=== PATIENT | male | born 1985 | race Caucasian/White ===

== ENCOUNTER 2019-10-28 06:52 | Emergency (ER) | payer OTHER, SELFPAY ==
--- NOTE | ~2019-10-28 | XR_ITS ---
EXAMINATION: XR hand LT min 3V DATE: 10/28/2019 07:49 INDICATION: Left hand injury and pain and swelling. TECHNIQUE: 3 views of left hand were obtained. COMPARISON: Left wrist radiographs 05/19/2016 FINDINGS: Bone alignment is normal. No fracture. Joint spaces are well maintained. IMPRESSION: 1. Normal left hand. Reviewed, dictated and finalized at location B. IMPRESSION: 1. Normal left hand.
--- NOTE | ~2019-10-28 | XR_ITS ---
EXAMINATION: XR hand RT min 3V DATE: 10/28/2019 07:49 INDICATION: Right hand injury and pain and swelling. TECHNIQUE: 3 views of right hand were obtained. COMPARISON: Right hand radiographs 01/17/2017 FINDINGS: Bone alignment is normal. No fracture. 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 IMPRESSION: 1. No fracture. Reviewed, dictated and finalized at location B. IMPRESSION: 1. No fracture.
[2019-10-28 07:09] VITALS: BP 138/77; PULSE 74; RESP 20; TEMP 36.6; O2SAT 98
--- NOTE | 2019-10-28 07:13 | ED.EXTPRO ---
HPI - Extremity Problem General Chief complaint: Extremity Problem,Nontraumatic Stated complaint: hands are numb Time Seen by Provider: 10/28/19 07:13 Source: patient Mode of arrival: ambulatory Limitations: no limitations History of Present Illness HPI Narrative: 33-year-old man comes in today complaining of bilateral hand pain, swelling and numbness that started over the last day or so. 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 He states that the numbness is on the palm side of his thumb, index, long and ring fingers. He denies prior similar symptoms. He states that his work requires him to do lot of gripping and twisting. Complaint: extremity pain and extremity swelling Onset (ago): day(s) Pain Consistency: constant Location: left, right and upper extremity Quality: aching Radiation: none Relieving factors: nothing Exacerbating factors: range of motion and palpation Associated symptoms: denies other symptoms Related Data Allergies Allergy/AdvReac Type Severity Reaction Status Date / Time No Known Allergies Allergy Verified 05/19/16 13:35 Review of Systems Constitutional: Constitutional: Denies chills and Denies fever(s) Eyes: Eyes: Denies change in vision and Denies photophobia ENT: Denies dysphagia, Denies nasal congestion and Denies sore throat Cardiovascular: Cardiovascular: Denies chest pain and Denies radiating jaw, neck or arm pain Respiratory: Respiratory: Denies cough and Denies dyspnea Gastrointestinal: Gastrointestinal: Denies nausea and Denies vomiting Musculoskeletal: Musculoskeletal: Reports as per HPI and Denies myalgias Integumentary/Breasts: Skin/Breast: Denies pruritus, Denies erythema and Denies rash Neurologic: Denies vertigo, Denies dizziness and Denies syncope Hematologic/Lymphatic: Hematologic/Lymphatic: Denies easy bleeding and Denies easy bruising Allergic/Immunologic: Allergic/Immunologic: Denies lip swelling and Denies throat swelling PMFSH Family History Family History (Updated 10/27/13 @ 07:13 by DOCTOR UNKNOWN) Mother Family history of elevated blood lipids Grandparent Diabetes mellitus Social History Social History Alcohol intake: current Exam Const: General: no acute distress and alert Orientation/consciousness: patient oriented x3 Limitations: no limitations HENMT: Face and sinus: normal facial exam Eyes: Conjunctivae: conjunctivae normal Pupils: Equal, round and reactive pupils present EOM: EOMs intact bilaterally Neck: Neck: not normal to visual inspection and lymphadenopathy noted Resp: Effort & Inspection: normal respiratory effort and not labored Auscultation: clear to auscultation bilaterally, no rales, no rhonchi and no wheezes Cardio: Rate: regular rate Rhythm: regular rhythm Skin: General skin exam: normal color, no jaundice and no pallor Rashes: no rashes Neuro: General: patient oriented x3, moves all extremities, no focal motor deficits and CN's II-XI intact bilaterally Gait exam (Neuro): Normal gait present Extrem: Other: Nonpitting edema in the hands bilaterally. There is mild tenderness palpation over all the metatarsals bilaterally but more significant tenderness at the right dorsal 2nd metatarsal. 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 Negative Tinel's sign. Psych: Appearance: grossly normal and well kempt Mental Status: mental status grossly normal Affect: normal affect Attitude: cooperative Thought content: Yes Normal thought content present Course Vital Signs Vital signs: Vital Signs Temperature 36.6 C 10/28/19 07:09 Pulse Rate 74 10/28/19 07:09 Respiratory Rate 20 10/28/19 07:09 Blood Pressure 138/77 10/28/19 07:09 Pulse Oximetry 98 10/28/19 07:09 Temperature 36.6 C 10/28/19 07:09 Pulse Rate 74 10/28/19 07:09 Respiratory R
[2019-10-28 08:23] VITALS: BP 130/75; PULSE 75; RESP 18; TEMP 36.2; O2SAT 99
== END 2019-10-28 08:27 | disposition home or self-care (01) ==
PROVIDERS: Emergency Provider Emergency Medicine; PCP Internal Medicine
DX: S60.222A Contusion of left hand, initial encounter (principal); S60.221A Contusion of right hand, initial encounter; S64.10XA Injury of median nerve at wrist and hand level of unspecified arm, initial encounter
CPT/HCPCS: 73130; 99283; 99284

== ENCOUNTER 2020-09-13 13:41 | Emergency (ER) | payer OTHER, SELFPAY ==
--- NOTE | ~2020-09-13 | CT_ITS ---
EXAMINATION: CT abdomen pelvis w con DATE: 09/13/2020 17:23 INDICATION: Right lower quadrant tenderness with nausea and diarrhea. TECHNIQUE: Computed tomography (CT) of the abdomen and pelvis was performed with 100 mL Omnipaque-350 intravenous contrast. Automated exposure control and iterative reconstruction technique were employe d. The dose-length product was 528.65 mGy-cm. COMPARISON: 02/22/2013 FINDINGS: Bilateral lower lung zones are clear. Heart size is normal. No pericardial or pleural effusion. Focal hepatic steatosis at the ligamentum teres. Gallbladder, spleen, pancreas, bilateral adrenal glands a nd kidneys are normal. Bowels including the appendix are normal. Small right and very small left fat- containing inguinal hernias. Mild bladder wall thickening which could be due to incomplete distention or cystitis either acute or chronic. No free intraperitoneal gas or fluid. No pathologically enlarge d abdominal or pelvic lymphadenopathy. Sacralized L5 segment. IMPRESSION: 1. Mild bladder wall thickening which could be due to incomplete distention or cystitis either acute or chronic. No other acute intra-abdominal/pelvic process. Specifically the appendix is normal. Reviewed, dictated and finalized at location A. IMPRESSION: 1. Mild bladder wall thickening which could be due to incomplete distention or cystitis either acute or chronic. No other acute intra-abdominal/pelvic process . Specifically the appendix is normal.
[2020-09-13 16:00] VITALS: BP 112/77; PULSE 87; RESP 20; TEMP 36.8; O2SAT 100
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
[2020-09-13] MEDS: SODIUM CHLORIDE 0.9% IV 1,000 ML 999 ML IV CONT (16:16)
[2020-09-13] MEDS: HYDROmorphone HCL INJ (*CRX) 2 MG/ML VIAL 0.5 MG IV PUSH (16:17)
[2020-09-13] MEDS: ONDANSETRON INJ 4 MG/2 ML VIAL IV PUSH (16:17)
[2020-09-13 16:30] LABS: Basophils Absolute Auto 0.08 K/mm3 (0.00-0.10); Basophils Percent Auto 0.6 % (0.0-1.0); Eosinophils Absolute Auto 0.13 K/mm3 (0.02-0.50); Hematocrit 43.9 % (40.0-54.0); Hemoglobin 15.1 g/dL (14.0-18.0); Immature Granulocyte Absolute 0.06 K/mm3 (0.00-0.00); Immature Granulocyte Percent A 0.4 % (0.0-0.0); Lymphocytes Absolute Auto 2.61 K/mm3 (1.10-4.50); Lymphocytes Percent Auto 19.6 % (18.0-42.0); Mean Corpuscular HGB Conc 34.4 g/dL (32.0-36.0); Mean Corpuscular Hemoglobin 30.4 pg (27.0-31.0); Mean Corpuscular Volume 88.3 fL (78.0-102.0); Mean Platelet Volume 8.4 fl (8.7-11.0); Monocytes Absolute Auto 1.38 K/mm3 (0.10-0.90); Monocytes Percent Auto 10.3 % (2.0-11.0); Neutrophils Absolute Auto 9.1 K/mm3 (1.7-7.2); Neutrophils Percent Auto 68.1 % (50.0-70.0); Platelet Count Result 276 K/mm3 (150-420); Red Blood Count 4.97 M/mm3 (4.70-6.10); Red Cell Distribution Width 12.4 % (11.6-14.4); White Blood Count 13.4 K/mm3 (4.8-10.8)
[2020-09-13 16:30] LABS: Add Urine Microscopic? YES; Appearance Urine Clear (Clear); Bilirubin Urine Negative (Negative); Blood Urine Negative (Negative); Color Urine Yellow (Yellow); Glucose Urine UA Trace (Negative); Ketones Urine Negative (Negative); Leukocyte Esterase Ur Negative LEU/UL (Negative); Nitrate Urine Negative (Negative); Protein Urine Trace (Negative); Specific Grav Ur >= 1.030 (1.010-1.020); pH Urine 5.5 (5.0-8.0)
[2020-09-13 16:35] LABS: RBC Urine 0-2 /hpf (0-2)
[2020-09-13 16:36] LABS: Bacteria Urine 1+ /hpf; Mucus Urine Heavy /lpf; Squamous Epithelial Cell Urine None seen /hpf (Few)
[2020-09-13 16:45] LABS: Alanine Aminotransferase 17 U/L (16-63); Albumin Level 3.9 g/dL (3.4-5.0); Alkaline Phosphatase 79 U/L (46-116); Anion Gap 10 mmol/L (8-16); Aspartate Amino Transferase 11 U/L (15-37); Bilirubin,Total 0.7 mg/dL (0.00-1.00); Blood Urea Nitrogen 24 mg/dL (7-18); Carbon Dioxide 27 mmol/L (21-32); Chloride 104 mmol/L (98-108); Estimated CRCL calculation 89 ml/min; Estimated Glomerular Filt Rate > 60; Glucose 100 mg/dL (70-99); Osmolality Calculated 296 mOsm/kg (285-295); Potassium 3.7 mmol/L (3.5-5.1); Sodium 141 mmol/L (136-145); Total Protein 6.4 g/dL (6.4-8.2)
[2020-09-13 16:50] LABS: Lactic Acid Reflex 1.4 mmol/L (0.4-2.0)
--- NOTE | 2020-09-13 18:24 | PC.NURSE ---
ERP discussed tests c pt. and need for admission for observation. Pt refusing to stay in hospital and wants to go home. Pt reports he needs to go to work or he will be fired and can't stay in hospital. Pt informed of risks/benefits and wants to sign AMA p ERP and this RN talked c him about need for staying. Pt. still wants to sign AMA, paperwork signed.
[2020-09-13 18:32] VITALS: BP 122/79; PULSE 72; RESP 18; TEMP 36.7; O2SAT 99
== END 2020-09-13 18:39 | disposition left against medical advice (07) ==
PROVIDERS: Emergency Provider Emergency Medicine; PCP Internal Medicine
DX: R10.9 Unspecified abdominal pain (principal); R82.81 Pyuria
CPT/HCPCS: 36415; 74177; 80053; 81001; 83605; 85025; 96361; 96374; 96375; 99283; 99284; J1170; J2405; J7030; Q9967

== ENCOUNTER 2020-11-06 22:22 | Emergency (ER) | payer OTHER, SELFPAY ==
[2020-11-06 23:08] VITALS: BP 152/91; PULSE 111; RESP 18; TEMP 36.5; O2SAT 96
--- NOTE | 2020-11-07 00:31 | PC.NURSE ---
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 Pt states he does not want to wait any longer. Pt ambulated out w/ steady gait.
== END 2020-11-07 01:23 | disposition left against medical advice (07) ==
PROVIDERS: PCP Internal Medicine
DX: Z53.21 Procedure and treatment not carried out due to patient leaving prior to being seen by health care provider (principal)
CPT/HCPCS: 99199

== ENCOUNTER 2020-11-07 02:13 | Emergency (ER) | payer OTHER, SELFPAY ==
[2020-11-07 02:15] VITALS: BP 138/78; PULSE 104; RESP 20; TEMP 35.9; O2SAT 100
--- NOTE | 2020-11-07 02:26 | ED.WOUNDLAC ---
HPI - Wound/Laceration General Chief Complaint: Wound/Laceration Stated Complaint: Cut on finger Source: patient and RN notes reviewed Mode of arrival: ambulatory Limitations: no limitations History of Present Illness Onset (ago): hour(s) (8) Extremity Location: Left: hand (middle finger) Place: home Patient tetanus UTD: No Context: accidental Associated symptoms: pain Treatments prior to arrival: bandage Related Data Allergies Allergy/AdvReac Type Severity Reaction Status Date / Time No Known Allergies Allergy Verified 05/19/16 13:35 Review of Systems Review of Systems: All systems reviewed & are unremarkable except as noted in HPI and below PMFSH Past Medical History Medical History (Updated 11/07/20 @ 02:56 by Sarthak Alonzo MD) No active medical problems Surgical History Surgical History (Updated 11/07/20 @ 02:32 by Sarthak Alonzo MD) No pertinent past surgical history Family History Family History (Updated 10/27/13 @ 07:13 by DOCTOR UNKNOWN) Mother Family history of elevated blood lipids Grandparent Diabetes mellitus Social History Social History Smoking status: Current every day smoker Alcohol intake: current Substance use: current Substance use type: marijuana Exam Const: General: healthy appearing, no acute distress and alert Nutritional Appearance: well nourished Orientation/consciousness: patient oriented x3 HENMT: Head: normal to inspection Ears: external ears normal Eyes: Conjunctivae: conjunctivae normal Pupils: Equal, round and reactive pupils present EOM: EOMs intact bilaterally Neck: Neck: normal visual inspection Resp: Effort & Inspection: normal respiratory effort Auscultation: clear to auscultation bilaterally Cardio: Rate: regular rate Rhythm: regular rhythm GI: GI Palp: Yes Soft to palpation and No Tenderness to palpation present (GI) Auscultation: normal bowel sounds Back/Spine/Pelvis: Cervical Spine: cervical ROM normal Thoracic/Lumbar Spine: thoraco-lumbar ROM normal Skin: General skin exam: normal color Rashes: no rashes Wounds: wounds noted laceration left 3rd finger size (2) and margins well approximated Neuro: General: patient oriented x3, moves all extremities, no meningeal signs and no focal motor deficits Speech: normal speech Gait exam (Neuro): Normal gait present Extrem: General: normal to inspection and no clubbing, cyanosis or edema Psych: Appearance: grossly normal and well kempt Mental Status: mental status grossly normal Affect: normal affect Attitude: cooperative Thought content: Yes Normal thought content present Course Vital Signs Vital signs: Vital Signs Temperature 35.9 C L 11/07/20 02:15 Pulse Rate 104 H 11/07/20 02:15 Respiratory Rate 11/07/20 02:15 Blood Pressure 138/78 11/07/20 02:15 Pulse Oximetry 100 11/07/20 02:15 Temperature 35.9 C L 11/07/20 02:15 Pulse Rate 99 11/07/20 02:56 Respiratory Rate 11/07/20 02:56 Blood Pressure 138/78 11/07/20 02:56 Pulse Oximetry 99 11/07/20 02:56 Procedures Laceration Laceration 1: Date: 11/07/20 Site: upper extremity ( middle finger distal phalanx palmar aspect) Side (If applicable): left Description: linear Depth: simple, single layer Local Anesthetic: lidocaine 1% Pre-repair: wound explored ====== Skin Level ====== Skin layer closed with: nylon Size (cm): 4-0 Number of sutures: 6 Technique: running ====== Subcutaneous Layer ====== ====== Muscle Layer ====== ====== Tendon Layer ====== Discharge Plan Discharge Clinical Impression: Laceration Patient Disposition: Home, Self-Care Condition: Stable Instructions: Care For Your Stitches (ED) Additional Instructions: do not get wet for 36 hours. Leave the bandage on for 36 hours. Use Tylenol and or Motrin as ne
[2020-11-07] MEDS: LIDOCAINE HCL 1% LOCAL INJ 20 ML VIAL INFILTRATE (02:39)
[2020-11-07] MEDS: TETANUS,DIPHTHERIA,AC PERTUSSIS ADULT 0.5 ML (ADACEL) IM (02:39)
[2020-11-07 02:56] VITALS: BP 138/78; PULSE 99; RESP 20; O2SAT 99
[2020-11-07] MEDS: NEOMYCIN/POLYMYXIN/BACITRACIN OINTMENT PACKET 1 PACKET TOPICAL (02:56)
== END 2020-11-07 03:00 | disposition home or self-care (01) ==
PROVIDERS: Emergency Provider Emergency Medicine; PCP Internal Medicine
DX: S61.213A Laceration without foreign body of left middle finger without damage to nail, initial encounter (principal); W45.8XXA Other foreign body or object entering through skin, initial encounter
CPT/HCPCS: 12002; 90471; 90715; 99283

== ENCOUNTER 2022-09-12 10:38 | Outpatient (CLI) | payer OTHER, SELFPAY ==
--- NOTE | ~2022-09-12 | XR_ITS ---
EXAMINATION: XR shoulder RT min 2V DATE: 09/12/2022 11:01 INDICATION: Right shoulder pain. TECHNIQUE: 4 views of right shoulder were obtained. COMPARISON: None. FINDINGS: Bone alignment is normal. No fracture. Glenohumeral joint is normal. There is mild acromioc lavicular joint osteoarthritis. IMPRESSION: 1. Mild right acromioclavicular joint osteoarthritis. Reviewed, dictated and finalized at location E.
== END 2022-09-12 10:39 | disposition home or self-care (01) ==
LOC: CHSIMG 10:39
PROVIDERS: PCP Internal Medicine; Visit Provider Nurse Practitioner Family
DX: M25.511 Pain in right shoulder (principal); M19.011 Primary osteoarthritis, right shoulder
CPT/HCPCS: 73030

== ENCOUNTER 2023-01-21 10:57 | Emergency (ER) | payer OTHER, SELFPAY ==
[2023-01-21 11:00] VITALS: BP 159/89; PULSE 83; RESP 18; TEMP 36.4; O2SAT 100
--- NOTE | 2023-01-21 11:11 | ED.WOUNDLAC ---
HPI - Wound/Laceration General Chief Complaint: Wound/Laceration Stated Complaint: laceration Time Seen by Provider: 01/21/23 11:05 Source: patient Mode of arrival: ambulatory Limitations: no limitations History of Present Illness HPI narrative: 37-year-old male presents to the ER with -- 2 cm laceration on his right forehead. He was trying to lay shingles when 1 of those slid back and hit him on his forehead. No loss of consciousness. He attempted using liquid glue but the laceration stayed open. He is up-to-date on tetanus immunization. No other injuries noted. Onset (ago): hour(s) ( 1 hour ago) Location: other ( forehead) Body four view annotation: 1. [address]: work Patient tetanus UTD: Yes Context: accidental Related Data Allergies Allergy/AdvReac Type Severity Reaction Status Date / Time No Known Allergies Allergy Verified 01/21/23 11:04 Review of Systems Review of Systems: All systems reviewed & are unremarkable except as noted in HPI and below Constitutional: Constitutional: Reports as per HPI Eyes: Eyes: Reports as per HPI ENT: Reports system reviewed and no additional complaints, except as documented Cardiovascular: Cardiovascular: Reports as per HPI and Reports no additional cardiovascular complaints Respiratory: Respiratory: Reports as per HPI and Reports no additional respiratory complaints Integumentary/Breasts: Comments: 2 cm forehead laceration Neurologic: Reports system reviewed and no additional complaints, except as documented PMFSH Past Medical History Medical History No active medical problems Surgical History Surgical History No pertinent past surgical history Family History Family History Mother Family history of elevated blood lipids Grandparent Diabetes mellitus Social History Social History Smoking status: Current every day smoker Alcohol intake: current Substance use: current Substance use type: marijuana Living arrangements: with family Exam Const: General: healthy appearing and no acute distress Nutritional Appearance: well nourished Orientation/consciousness: patient oriented x3 Limitations: no limitations HENMT: Head: laceration ( 2 cm forehead laceration) Ears: external ears normal Face/Nose/Sinus: Normal external nose present Face and sinus: normal facial exam Mouth: Yes Normal oral and palatal mucosa present Throat: posterior oropharynx normal Eyes: Conjunctivae: conjunctivae normal Pupils: Equal, round and reactive pupils present EOM: EOMs intact bilaterally Direct Ophthalmoscopy: no photophobia Neck: Neck: normal visual inspection, no lymphadenopathy and no meningeal signs Chest: Chest palpation & inspection: normal inspection of the chest Resp: Effort & Inspection: normal respiratory effort Auscultation: clear to auscultation bilaterally Cardio: Rate: regular rate Rhythm: regular rhythm GI: GI Palp: Yes Soft to palpation Auscultation: normal bowel sounds Back/Spine/Pelvis: Back: no CVA tenderness Skin: General skin exam: normal color Other: 2 cm forehead laceration Neuro: General: patient oriented x3, moves all extremities, no meningeal signs, no focal motor deficits and CN's II-XI intact bilaterally Cranial nerves: Yes Nystagmus not present Speech: normal speech Gait exam (Neuro): Normal gait present Extrem: General: normal to inspection and no clubbing, cyanosis or edema Psych: Mental Status: mental status grossly normal Affect: normal affect Attitude: cooperative Course Course Emergency Course: forehead laceration-- failed attempted glue. wound sutured with 4-0 nylon Vital Signs Vital signs: Vital Signs Temperature 36.4 C L 01/21/23 11:0
[2023-01-21] MEDS: LIDOCAINE HCL 1% LOCAL INJ 10 ML VIAL 3 ML INFILTRATE (11:17)
== END 2023-01-21 11:41 | disposition home or self-care (01) ==
PROVIDERS: Emergency Provider Internal Medicine Critical Care Medicine; PCP Internal Medicine
DX: S01.81XA Laceration without foreign body of other part of head, initial encounter (principal); F17.200 Nicotine dependence, unspecified, uncomplicated; W20.8XXA Other cause of strike by thrown, projected or falling object, initial encounter
CPT/HCPCS: 12001; 99283

== ENCOUNTER 2023-05-28 11:35 | Emergency (ER) | payer OTHER, SELFPAY ==
--- NOTE | ~2023-05-28 | XR_ITS ---
EXAMINATION: XR ankle RT min 3V INDICATION: Right ankle pain, initial encounter TECHNIQUE: Three views of the right ankle are obtained. COMPARISON: None available FINDINGS: There is an acute, traumatic, closed, oblique fracture of the distal fibula which extends b elow the level of the tibial plafond. The distal fracture fragment is laterally displaced by approxim ately 2 mm. Tibiotalar alignment is normal. There is ankle soft tissue swelling. No additional fractu re is identified. IMPRESSION: 1. Oblique fracture of the distal fibula extending below the level of the tibial plafond. Reviewed, dictated and finalized at location F. IMPRESSION: 1. Oblique fracture of the distal fibula extending below the level of the tibia l plafond.
[2023-05-28 11:36] VITALS: BP 129/94; PULSE 77; RESP 24; TEMP 36.7; O2SAT 100
[2023-05-28] MEDS: KETOROLAC (*BKC) 60 MG/2 ML VIAL IM (12:04)
--- NOTE | 2023-05-28 12:23 | ED.LOWEXIN ---
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 complaint: ankle injury Onset (ago): hour(s) Injury: Right: ankle ( tender with swelling) Type of Injury: inversion Place: street/outdoors Severity: severe Severity scale (1-10): 10 Related Data Allergies Allergy/AdvReac Type Severity Reaction Status Date / Time No Known Allergies Allergy Verified 01/21/23 11:04 Review of Systems Review of Systems: All systems reviewed & are unremarkable except as noted in HPI and below PMFSH Past Medical History Medical History No active medical problems Surgical History Surgical History No pertinent past surgical history Family History Family History Mother Family history of elevated blood lipids Grandparent Diabetes mellitus Social History Social History Smoking status: Current every day smoker Alcohol intake: current Substance use: current Substance use type: marijuana Living arrangements: with family Exam Const: General: healthy appearing, no acute distress and alert Nutritional Appearance: well nourished Orientation/consciousness: patient oriented x3 Resp: Effort & Inspection: normal respiratory effort Auscultation: clear to auscultation bilaterally Cardio: Rate: regular rate Rhythm: regular rhythm GI: GI Palp: Yes Soft to palpation Auscultation: normal bowel sounds Skin: General skin exam: normal color Rashes: no rashes Wounds: no wounds Neuro: General: patient oriented x3, moves all extremities, no meningeal signs and no focal motor deficits Extrem: Other: Swollen bilateral malleolus on the right ankle brisk radial pulse on the right Course Course Emergency Course: patient received a dose of 60mg IM Toradol which has eased his pain level after reassessment. X-ray performed shows an oblique fracture of the distal fibula. spoke with some PA of Dr. Brannon orthopedist and accepted the patient for scheduled appointment. Vital Signs Vital signs: Vital Signs Temperature 36.7 C 05/28/23 11:36 Pulse Rate 77 05/28/23 11:36 Respiratory Rate 24 H 05/28/23 11:36 Blood Pressure 129/94 H 05/28/23 11:36 Pulse Oximetry 100 05/28/23 11:36 Oxygen Delivery Room Air 05/28/23 11:36 Temperature 36.7 C 05/28/23 11:36 Pulse Rate 77 05/28/23 11:36 Respiratory Rate 24 H 05/28/23 11:36 Blood Pressure 129/94 H 05/28/23 11:36 Pulse Oximetry 100 05/28/23 11:36 Oxygen Delivery Room Air 05/28/23 11:36 Critical Care Time Critical Care Time Critical Care Time: No Discharge Plan Discharge Clinical Impression: Closed right fibular fracture Qualifiers: Encounter type: initial encounter Fibula location: shaft Fracture morphology: oblique Fracture alignment: displaced Qualified Code(s): S82.431A - Displaced oblique fracture of shaft of right fibula, initial encounter for closed fracture Patient Disposition: Home, Self-Care Condition: Stable Instructions: Antibiotic Form, Ankle Fracture (ED) Additional Instructions: take medicine as prescribed, nonweightbearing can use ice to affected area keep elevated while at rest and follow as scheduled with your orthopedic doctor. Prescriptions: New oxycodone-acetaminophen [Percocet] 5-325 mg tablet 1 tablet PO Q6H
--- NOTE | 2023-05-28 13:01 | PC.NURSE ---
prescription for crutches given to pt. no education needed . has used in the past.
--- NOTE | 2023-05-28 13:03 | PC.NURSE ---
applied ocl splint to pt to posterior r ankle
== END 2023-05-28 13:16 | disposition home or self-care (01) ==
PROVIDERS: Emergency Provider Emergency Medicine; PCP Internal Medicine
DX: S82.431A Displaced oblique fracture of shaft of right fibula, initial encounter for closed fracture (principal); X50.0XXA Overexertion from strenuous movement or load, initial encounter; F17.210 Nicotine dependence, cigarettes, uncomplicated; F12.90 Cannabis use, unspecified, uncomplicated
CPT/HCPCS: 29505; 73610; 96372; 99284; J1885

== ENCOUNTER 2023-07-16 13:03 | Outpatient (RCR) | payer OTHER, SELFPAY ==
--- NOTE | 2023-07-16 14:07 | OPREHPOC ---
Outpatient Therapy Plan of Care This is a Multidisciplinary Plan of Care that may contain components documented by all disciplines (PT, OT, and ST.) PT Problem 1 PT Problem #1 Knowledge Deficit PT Goal 1 Goal 1. independent and compliant with HEP Target Visit 6 PT Problem 2 PT Problem #2 Pain PT Goal 1 Goal 1. patient to return to pain free weight bearing activities to return to his prior level work performance and quality of life. Target Visit 12 PT Problem 3 PT Problem #3 Impaired Strength PT Goal 1 Goal 1. 5/5 R ankle strength Target Visit 12 PT Problem 4 PT Problem #4 Impaired Range of Motion PT Goal 1 Goal 1. 15 degrees active R ankle DF 2. 10 degrees active R ankle EV 3. 30 degrees active R ankle IV Target Visit 12 PT Problem 5 PT Problem #5 Impaired Functional Mobil PT Goal 1 Goal 1. patient to DC need of crutch and boot for ambulation in 2 weeks. Target Visit 6 PT Goal 2 Goal 1. 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 2. patient to ambulate up and down steps with reciprocal mechanics 3. patient to ambulate up and down inclines with reciprocal gait mechanics and no pain 4. LEFS to display 20% or less functional deficits 5. patient to carry 40lbs without instability of the R ankle to return to prior level work activities. Target Visit 12
--- NOTE | 2023-07-16 14:07 | PTOPEVAL1 ---
Assessment and note entered by JT File, PT Evaluation Information Assessment Status Evaluation Diagnosis closed fracture of distal R fibula Onset 05/28/23 Subjective Information patient reports he broke his ankle at work. he reports he works at the [employer]. he reports he was swinging a bucket of debris and broke his ankle. he reports he has surgery to place a plate and 3 screws. he reports he also had ligament re- attachment. he reports surgery was on 06/03/23. he reports he has a follow up with the surgeon in 3 weeks. he reports he has been released for full weight bearing, and to begin weaning from the boot with PT. he reports prior to this, he was NWB on the R LE since the accident. Reported Pain Level Pain Score 1: Self Report Additional Pain Score Comments without the compression sock, he has 9/10 pain, with the compression sock he has 1/10 pain. he reports the ankle is not as painful, but is having nerve pain and issues from the knee down to the ankle. Assessment PT Clinical Summary mr. simmons is a 37 yo man who presents to skilled PT services for evaluation and treatment after fracture and surgical stabilization of the R ankle from an injury at work. he presents today with pain, decreased rom, decreased strength, and inability to ambulate with normal gait mechanics. he is unable to perform his normal work related duties as they all involve standing, walking, and carrying. continued skilled PT is indicated to improve his objective/functional deficits and progress towards a return to his prior level functional activity and work performance/quality of life. Plan of Care Interventions Electrical Stimulation,Gait Training,Hot Pack/Cold Pack,Intermittent Compression,Manual Therapy, Neuro Re-education,Patient/Caregiver Educati, Therapeutic Activities,Therapeutic Exercise PT Services Indicated Yes Treatment Frequency and 3x weekly for 12 visits Duration These treatments will address the objective and functional deficits as defined above. The patient will be advanced safely and appropriately in order for the patient to progress towards his/her prior level of function. Additional exercises will be introduced and as well as a comprehensive home exercise program upon discharge, if needed, ?to ensure carryover of functional gains achieved in the clinic. This treatment plan has been reviewed and agreement upon by the patient.
--- NOTE | 2023-07-30 15:56 | PCPTNOTE ---
Patient cancelled session. He reports he is stuck in traffic and will not make it in time.
--- NOTE | 2023-08-05 18:01 | PCPTNOTE ---
Patient did not show up for scheduled appointment this date.
--- NOTE | 2023-08-14 13:08 | PCPTNOTE ---
Patient cancelled session today. States he is working late today.
--- NOTE | 2023-08-21 15:24 | PCPTNOTE ---
Patient called & cancelled scheduled appointment this date due to [Has to work longer than he thought]
--- NOTE | 2023-09-01 16:35 | OPREHPOC ---
Outpatient Therapy Plan of Care This is a Multidisciplinary Plan of Care that may contain components documented by all disciplines (PT, OT, and ST.) PT Problem 1 PT Problem #1 Knowledge Deficit PT Goal 1 Goal 1. independent and compliant with HEP Target Visit 6 Progress Met PT Problem 2 PT Problem #2 Pain PT Goal 1 Goal 1. patient to return to pain free weight bearing activities to return to his prior level work performance and quality of life. Target Visit 12 Progress Met PT Problem 3 PT Problem #3 Impaired Strength PT Goal 1 Goal 1. 5/5 R ankle strength Target Visit 12 Progress Met PT Problem 4 PT Problem #4 Impaired Range of Motion PT Goal 1 Goal 1. 15 degrees active R ankle DF. met 2. 10 degrees active R ankle EV. not met 3. 30 degrees active R ankle IV. met Target Visit 12 Progress Partially Met PT Problem 5 PT Problem #5 Impaired Functional Mobil PT Goal 1 Goal 1. patient to DC need of crutch and boot for ambulation in 2 weeks. Target Visit 6 Progress Met PT Goal 2 Goal 1. 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 met 2. patient to ambulate up and down steps with reciprocal mechanics. met 3. patient to ambulate up and down inclines with reciprocal gait mechanics and no pain. met 4. LEFS to display 20% or less functional deficits . met 5. patient to carry 40lbs without instability of the R ankle to return to prior level work activities. met Target Visit 12 Progress Met
--- NOTE | 2023-09-01 16:35 | PTOPDC ---
Assessment and note entered by JT File, PT Evaluation Information Assessment Status Discharge Diagnosis closed fracture of distal R fibula Onset 05/28/23 Subjective Information patient reports he feels great today. he reports he has no pain in the R ankle. he reports he is tolerating standing, walking, and working all day without issues. he reports he is ready to be done with therapy. Reported Pain Level Pain Score 0: Self Report Assessment PT Clinical Summary mr. simmons presents to skilled PT services for his 10th skilled PT visit. he presents today with improved rom, strength, and ambulation. he has no more pain in the R ankle. he has met all goals for skilled PT, except for R ankle EV AROM. he will DC skilled PT today, and continue with HEP independent at home. Plan of Care PT Services Indicated Yes
== END 2023-09-01 20:00 | disposition home or self-care (01) ==
LOC: CHSPT 13:03
DX: S82.831D Other fracture of upper and lower end of right fibula, subsequent encounter for closed fracture with routine healing (principal); Z98.890 Other specified postprocedural states; Z87.891 Personal history of nicotine dependence
CPT/HCPCS: 97016; 97110; 97112; 97161